=== PATIENT | male | born 1930 | race American Indian/Alaskan Native ===

== ENCOUNTER 2018-04-11 12:19 | Inpatient (IN) | payer MEDICARE, BC, OTHER ==
[2018-04-11 12:20] VITALS: BMI 29.7
--- NOTE | 2018-04-11 13:49 | ED PDOC ---
Arrival/HPI - General Chief Complaint: Abdominal Pain Time Seen by Provider: 04/11/18 13:47 Historian: Patient - History of Present Illness Narrative History of Present Illness (Text): 04/11/18 13:49 88 year old male, with past medical history of COPD, diabetes and hypertension, presents to the Emergency department complaining of diffused abdominal pain since 4-5 days. Patient states worsening discomfort over last few days associated with poor appetite, intermittent nausea, vomiting and loose bowel movement. Patient informs eating [place] food 4-5 days prior and believes it may have been the cause for these symptoms. Patient additionally informs mild sore throat and hematuria but denies any gross blood in bowel movement. Patient denies any fever/chills/sweats, chest pain/shortness of breath/palpitations, numbness/tingling, bowel changes/complaints, fall/trauma/sick contact/travel or any other complaints. Patient presents to the Emergency department for medical evaluation. PMD: Dr. Castellanos Time/Duration: < week (4-5 days) Symptom Onset: Gradual Symptom Course: Unchanged Quality: Aching Activities at Onset: Light Context: Home Past Medical History - Provider Review Nursing Documentation Reviewed: Yes - Travel History Have you recently traveled outside [place] w/in the past 3 mons?: No - Past History Past History: Non-Contributing - Infectious Disease Hx of Infectious Diseases: None - Cardiac Hx Hypertension: Yes - Pulmonary Hx Chronic Obstructive Pulmonary Disease (COPD): Yes - Endocrine/Metabolic Hx Diabetes Mellitus Type 2: Yes - Musculoskeletal/Rheumatological Hx Falls: No - Psychiatric Hx Substance Use: No - Anesthesia Hx Anesthesia: No - Suicidal Assessment Feels Threatened In Home Enviroment: No Family/Social History - Physician Review Nursing Documentation Reviewed: Yes Family/Social History: No Known Family HX Smoking Status: Former Smoker Hx Alcohol Use: No Hx Substance Use: No Hx Substance Use Treatment: No Allergies/Home Meds Allergies/Adverse Reactions: Allergies No Known Allergies Allergy (Verified 05/02/16 18:53) Home Medications: Home Meds Medication Instructions Recorded Confirmed Furosemide [Lasix] 40 mg PO DAILY 06/06/15 04/11/18 Aspirin [Adult Low Dose Aspirin EC] 81 mg PO DAILY 03/22/16 04/11/18 Losartan Potassium 50 mg PO DAILY 03/22/16 04/11/18 Ascorbic Acid [Vitamin C] 500 mg PO DAILY 04/11/18 04/11/18 Benzonatate [Tessalon Perles] 100 mg PO BID 04/11/18 04/11/18 Finasteride [Proscar] 5 mg PO DAILY 04/11/18 04/11/18 Insulin Lispro Mix 75/25 [humalog 0 units SC BID 04/11/18 04/11/18 Mix 75/25 75 U/Ml-25 U/Ml 10 Ml] Sotalol [Sorine] 80 mg PO BID 04/11/18 04/11/18 Spironolactone [Aldactone] 25 mg PO DAILY 04/11/18 04/11/18 Review of Systems - Physician Review All systems were reviewed & negative as marked: Yes - Review of Systems Constitutional: Normal. absent: Fevers Eyes: Normal ENT: Normal Respiratory: Normal. absent: SOB Cardiovascular: Normal. absent: Chest Pain, Palpitations Gastrointestinal: Abdominal Pain, Diarrhea, Nausea, Vomiting, Appetite Changes. absent: Hematochezia Genitourinary Male: Hematuria. absent: Urinary Output Changes Musculoskeletal: Normal Skin: Normal Neurological: Normal Endocrine: Normal Hemo/Lymphatic: Normal Psychiatric: Normal Physical Exam - Physical Exam Narrative Physical Exam (Text): 04/11/18 13:56 General: alert/awake, GCS = 15, oriented x 3, resting in bed, uncomfortable, cooperative, interactive; NAD Head: NC/AT; mild bi-temporal wasting EYE: PERRLA, EOMI, sclera anicteric, no nystagmus, no photophobia; visual field intact b/l Facial: WNL Oral: uvula/tongue are midline, no exudate/lesions, no drooling/stridor, no dysphonia; poor dentitions; mild dry oral mucosa NECK: intact ROM, no midline tenderness, no nuchal rigidity, no meningeal signs ; no step off Chest: CTA b/l, no w/r/r; no tachypenia, no accessory muscle use noted Chest Wall: no crepitus, no lesions, no gross deformities, no focal tenderness Cardiac: +S1, +S2, no m/r/r, no tachycardia Abdominal: +BS, soft/nd; faint lower abd tenderness noted, well nourished/ slight obese patient; no masses/rebound/guarding/rigidity; no oliva's sign, no mcburney's point tenderness Extremities: intact ROM, strength 5/5 grossly intact in all limbs, neurovasc intact b/l; + ambulatory; reflex +2/2; no pitting edema noted b/l, no dhara's sign BACK: no step off, no midline tenderness, NO crepitus, no gross deformities noted; Intact ROM SKIN: cap refill ~ 1 sec, no ulcerations, no petechiae, no rashes; no gross pallor noted NEURO: CNII-XII WNL, no facial asymmetries, no slurr speech, oriented x 3 NIH stroke scale ~ 0 Psych: normal insight, normal affect; follows command with ease Vital Signs Reviewed: Yes Vital Signs Temp Pulse Resp BP Pulse Ox 04/11/18 21:01 89 118/76 04/11/18 16:43 98 F 74 18 121/74 97 04/11/18 12:39 97.9 F 93 H 18 100/65 95 Temperature: Afebrile Blood Pressure: Normal Pulse: Regular Respiratory Rate: Normal Appearance: Positive for: Well-Appearing, Non-Toxic, Uncomfortable. No: Ill- Appearing, Unkept Pain Distress: None Mental Status: Positive for: Alert and Oriented X 3 - Systems Exam Head: Present: Atraumatic, Normocephalic Medical Decision Making ED Course and Treatment: 04/11/18 13:58 Impression: 88 year old male presents to the Emergency department for diffused abdominal pain associated with intermittent nausea, vomiting and lose bowel movement. I have considered all differential diagnoses regarding patients chief medical complaints/clinical findings which include but are not limited to: r/o infection; r/o abd pathology A/P: -- VBG -- CT of Abdomen/Pelvis -- Labs -- Chest X-ray -- Morphine -- Pepcid -- Zofran -- Urinalysis -- Reassess and disposition Progress Notes: 500pm pt is currently awaiting CT and chem results pt states that he felt much improved, compare with prior 600pm with abnl K and elevated BUN/creat, will recommend insulin+d50+calgluconate; ? johnate will re-check K pt is awaiting CT results i attempt to contact CT to inquire the CT status and to update them regarding changes in CT order but no one was able to pick up man the phone 04/11/18 18:25 fitness technician states she had perform the CT with IV contrast after she realized it was cancelled and did not see the new order [address] Vieira, mass communications instructor for Dr Castellanos, made aware of pt's medical complaints and also regarding pt's CT with IV; agrees with ED eval/mgt, would like keisha and nidia, will admit patient, will continue to monitor pt is made aware of his medical results agrees with admission Re-evaluation Time: 17:00 Reassessment Condition: Improved - Critical Care Critical Care Minutes: 30 minutes Critical Care Time: Excluding Proc Time - Lab Interpretations Lab Results: 04/11/18 15:00 04/11/18 18:30 Lab Results 04/11/18 18:30: Sodium 139, Chloride 115 H, Potassium 5.8 H* D, Carbon Dioxide 15 L, Anion Gap 15, BUN 55 H, Creatinine 1.9 H, Est GFR ( Amer) 41, Est GFR (Non-Af Amer) 34, Random Glucose 131 H, Calcium 9.0, Magnesium 2.0 04/11/18 18:30: pO2 159 H, VBG pH 7.24 L, VBG pCO2 34.0 L, VBG HCO3 14.6 L, VBG O2 Sat (Calc) 97.8 H, VBG Base Excess -11.8 L 04/11/18 15:42: Urine Color Yellow, Urine Appearance Clear, Urine pH 6.0, Ur Specific Randle 1.020, Urine Protein Trace H, Urine Glucose (UA) Negative, Urine Ketones Negative, Urine Blood Large H, Urine Nitrate Negative, Urine Bilirubin Negative, Urine Urobilinogen 0.2, Ur Leukocyte Esterase Moderate H, Urine RBC 25 - 30, Urine WBC 1 - 3, Ur Epithelial Cells 0 - 2, Urine Bacteria Trace 04/11/18 15:00: pO2 85 H, VBG pH 7.25 L, VBG pCO2 36.0 L, VBG HCO3 15.8 L, VBG Total CO2 16.9 L, VBG O2 Sat (Calc) 96.4 H, VBG Base Excess -10.6 L, VBG Potassium 7.5 H*, Sodium 131.0 L, Chloride 112.0 H, Glucose 187 H, Lactate 1.3, FiO2 21.0, Venous Blood Potassium 7.5 H* 04/11/18 15:00: Sodium 138, Chloride 112 H, Potassium 7.5 H* D, Carbon Dioxide 17 L, Anion Gap 17, BUN 60 H, Creatinine 2.3 H, Est GFR ( Amer) 33, Est GFR (Non-Af Amer) 27, Random Glucose 133 H, Calcium 9.4, Total Bilirubin 0.6, AST 42, ALT 54, Alkaline Phosphatase 36 L, Troponin I 0.02, NT-Pro-B Natriuret Pep 368, Total Protein 7.3, Albumin 3.5, Globulin 3.7, Albumin/Globulin Ratio 0.9 L, Lipase 102 04/11/18 15:00: PT 13.0 H, INR 1.14 H, APTT 26.6 04/11/18 15:00: WBC 12.4 H D, RBC 3.70, Hgb 12.2 L, Hct 36.4 L, MCV 98.4, MCH 33.0, MCHC 33.5, RDW 13.4, Plt Count 214, MPV 10.0, Gran % 72.6 H, Lymph % (Auto ) 21.9 L, [place] % (Auto) 5.2, Eos % (Auto) 0.2 L, Baso % (Auto) 0.1, Gran # 8.97 H, Lymph # (Auto) 2.7, [place] # (Auto) 0.6, Eos # (Auto) 0.0, Baso # (Auto) 0.01 I have reviewed the lab results: Yes Interpretation: Abnormal lab values (elevated BUN/creat, elevated K; + UTI) - RAD Interpretation Narrative RAD Interpretations (Text): 04/11/18 15:12 Chest X-ray reviewed by radiologist, shows: FINDINGS: LUNGS: No active pulmonary disease. PLEURA: No significant pleural effusion identified, no pneumothorax apparent. CARDIOVASCULAR: Normal. OSSEOUS STRUCTURES: No significant abnormalities. VISUALIZED UPPER ABDOMEN: Normal. OTHER FINDINGS: Single lead pacemaker IMPRESSION: No active disease. 04/11/18 20:30 CT abdomen/pelvis reviewed, shows: Limitations: Motion artifact - mild. Lung bases: Mild peripheral atelectasis/scarring. Mild bronchiectasis within lower lobes. 0.2 cm LEFT lower lobe nodule, stable. 0.3 cm RIGHT middle lobe nodule. Mediastinum: Small hiatal hernia. Borderline enlarged short axis subcarinal lymph node. ABDOMEN: Liver: Fatty infiltration. Gallbladder and bile ducts: No calcified stones. No ductal dilation. Pancreas: No ductal dilation. No mass. Spleen: No splenomegaly. Adrenals: No mass. Kidneys and ureters: Mild stranding about kidneys, nonspecific. Few probable renal cysts. Few too small to characterize lesions within kidneys. 2.7 x 2.7 x 2.7 cm lesion within LEFT kidney, indeterminate by CT criteria. 1.7 x 1.7 x 1.7 cm lesion within LEFT kidney, indeterminate by CT criteria. No hydronephrosis. Stomach and bowel: Scattered diverticula within colon. No associated inflammatory stranding. No definite mural thickening. No obstruction. PELVIS: Appendix: No findings to suggest acute appendicitis. Bladder: Distended bladder. Reproductive: Unremarkable as visualized. ABDOMEN and PELVIS: Intraperitoneal space: No significant fluid collection. No free air. Bones/joints: Mild degenerative changes of spine. No acute fracture. Soft tissues: Mild gynecomastia. Small to moderate RIGHT inguinal hernia containing fat. Moderate LEFT inguinal hernia containing fat and sidewall of large bowel. Mild focal stranding within the anterior abdominal wall, stable. Small umbilical hernia containing fat. Vasculature: Moderate atherosclerotic disease. No aneurysm. Lymph nodes: No pathologically enlarged lymph nodes. Tubes, lines and devices: Pacemaker leads. IMPRESSION: 1. Kidney lesions, incompletely characterized but similar in size to previous examination. Recommend nonemergent ultrasound or MRI. Given history of hematuria, recommend urological consultation. 2. Pulmonary nodule. For low-risk patients, no follow-up is necessary. For high- risk patients (smoking history or other known risk factors) an optional CT at 12 months could be performed. 3. Incidental/non-acute findings are described above. Radiology Orders: 04/11/18 13:59 CHEST PORTABLE [RAD] Stat 04/11/18 18:10 ABD & PELVIS IV CONTRAST ONLY [CT] Stat Public Affairs Specialist: Radiologist - EKG Interpretation EKG Interpretation (Text): 04/11/18 20:03 NSR at 75 bpm, LAD, no ectopy, diffuse low voltage, inverted T in leads I, L, non-specific st changes, ABNL EKG; unchanged compare with old ekg 04/2016 Interpreted by ED Physician: Yes Type: 12 lead EKG Comparison: Similar to previous EKG - Medication Orders Current Medication Orders: Acetaminophen (Tylenol 325mg Tab) 650 mg PO Q6H PRN PRN Reason: Pain Last Admin: 04/12/18 23:13 Dose: 650 mg MAR Pain/Vitals Document 04/12/18 23:13 FDE (Rec: 04/12/18 23:13 FDE [id number]) Pain Reassessment Is This A Pain ReAssessment? Yes Sleep Is patient sleeping during reassessment? No Presence of Pain Presence of Pain Yes Re-Assess: MAR Pain/Vitals Document 04/13/18 00:13 FDE (Rec: 04/13/18 00:49 FDE [id number]) Pain Reassessment Is This A Pain ReAssessment? Yes Sleep Is patient sleeping during reassessment? Yes Aspirin (Ecotrin) 81 mg PO DAILY [facility] Last Admin: 04/12/18 10:27 Dose: 81 mg Benzocaine/Menthol (Cepacol Sore Throat) 1 [place] Q2H PRN PRN Reason: Sore Throat Last Admin: 04/12/18 18:30 Dose: 1 raymond Finasteride (Proscar) 5 mg PO DAILY [facility] Last Admin: 04/12/18 10:28 Dose: 5 mg Sodium Chloride (Sodium Chloride 0.9%) 1,000 mls @ 100 mls/hr IV .Q10H [facility] Last Admin: 04/13/18 03:31 Dose: 100 mls/hr eMAR Start Stop Document 04/13/18 03:31 FDE (Rec: 04/13/18 03:31 FDE [id number]) Intravenous Solution Start Date 04/13/18 Start Time 03:31 Ceftriaxone Sodium (Rocephin 1 Gram Ivpb) 1 gm in 100 mls @ 100 mls/hr IVPB DAILY MAEGAN PRN Reason: Protocol Last Admin: 04/12/18 10:28 Dose: 100 mls/hr eMAR Start Stop Document 04/12/18 10:28 RDS (Rec: 04/12/18 10:28 RDS [id number]) Intravenous Solution Start Date 04/12/18 Start Time 10:28 End Date 04/12/18 End time 11:28 Total Infusion Time 60 Insulin Human Lispro (Humalog Med) 0 units SC ACHS MAEGAN PRN Reason: Protocol Last Admin: 04/12/18 22:43 Dose: Not Given Non-Admin Reason: Blood Sugar Parameter MAR Blood Glucose Document 04/12/18 22:43 FDE (Rec: 04/12/18 22:44 FDE [id number]) Blood Glucose Finger Stick Blood Glucose (70-120) 194 Ondansetron HCl (Zofran Inj) 4 mg IVP Q6H PRN PRN Reason: Nausea/Vomiting Sotalol HCl (Betapace) 80 mg PO BID [facility] Last Admin: 04/12/18 17:41 Dose: 80 mg MAR Pulse and Blood Pressure Document 04/12/18 17:41 RDS (Rec: 04/12/18 17:41 RDS [id number]) Pulse Pulse Rate (60-90) 80 Blood Pressure Blood Pressure (100/60-150/90) 121/75 Discontinued Medications Albuterol/Ipratropium (Duoneb 3 Mg/0.5 Mg (3 Ml) Ud) 3 ml IH Q15M [facility] Stop: 04/11/18 19:16 Last Admin: 04/11/18 20:13 Dose: 3 ml Calcium Gluconate (Calcium Gluconate Iv) 1,000 mg IVP ONCE ONE Stop: 04/11/18 17:44 Last Admin: 04/11/18 17:58 Dose: 1,000 mg IVP Administration Document 04/11/18 17:58 LA (Rec: 04/11/18 17:58 LA [id number]) Charges for Administration # of IVP Administrations 1 Dextrose (Dextrose 50% Inj) 50 ml IVP STAT STA Stop: 04/11/18 17:43 Last Admin: 04/11/18 17:57 Dose: 50 ml IVP Administration Document 04/11/18 17:57 LA (Rec: 04/11/18 17:57 PATRICA [id number]) Charges for Administration # of IVP Administrations 1 Fludrocortisone Acetate (Florinef) 0.1 mg PO ONCE ONE Stop: 04/12/18 14:29 Last Admin: 04/12/18 15:35 Dose: 0.1 mg Furosemide (Lasix) 40 mg IVP ONCE ONE Stop: 04/12/18 14:29 Last Admin: 04/12/18 15:35 Dose: 40 mg MAR Blood Pressure Document 04/12/18 15:35 RDS (Rec: 04/12/18 15:35 RDS [id number]) Blood Pressure Blood Pressure (100/60-150/90) 106/74 IVP Administration Document 04/12/18 15:35 RDS (Rec: 04/12/18 15:35 RDS [id number]) Charges for Administration # of IVP Administrations 1 Famotidine (Pepcid 20mg/50ml Premix) 20 mg in 50 mls @ 100 mls/hr IVPB STAT STA Stop: 04/11/18 14:28 Last Admin: 04/11/18 15:31 Dose: 100 mls/hr eMAR Start Stop Document 04/11/18 15:31 LA (Rec: 04/11/18 15:31 LA [id number]) Intravenous Solution Start Date 04/11/18 Start Time 15:31 End Date 04/11/18 End time 16:01 Total Infusion Time 30 Ceftriaxone Sodium (Rocephin 1 Gram Ivpb) 1 gm in 100 mls @ 200 mls/hr IVPB STAT STA PRN Reason: Protocol Stop: 04/11/18 17:15 Last Admin: 04/11/18 17:24 Dose: 200 mls/hr eMAR Start Stop Document 04/11/18 17:24 LA (Rec: 04/11/18 17:26 LA [id number]) Intravenous Solution Start Date 04/11/18 Start Time 17:25 End Date 04/11/18 End time 17:55 Total Infusion Time 30 Sodium Chloride (Sodium Chloride 0.9%) 500 mls @ 999 mls/hr IV .Q31M STA Stop: 04/11/18 19:06 Last Admin: 04/11/18 19:01 Dose: 999 mls/hr eMAR Start Stop Document 04/11/18 19:01 LA (Rec: 04/11/18 19:02 LA [id number]) Intravenous Solution Start Date 04/11/18 Start Time 19:01 End Date 04/11/18 End time 19:32 Total Infusion Time 31 Sodium Bicarbonate 150 meq/ (Dextrose) 1,150 mls @ 125 mls/hr IV .Q9H12M MAEGAN Stop: 04/12/18 23:41 Last Admin: 04/12/18 18:00 Dose: 125 mls/hr eMAR Start Stop Document 04/12/18 18:00 RDS (Rec: 04/12/18 18:00 RDS [id number]) Intravenous Solution Start Date 04/12/18 Start Time 18:00 Calcium Gluconate 1,000 mg/ (Dextrose) 110 mls @ 110 mls/hr IVPB ONCE ONE Stop: 04/12/18 16:13 Last Admin: 04/12/18 16:15 Dose: 110 mls/hr eMAR Start Stop Document 04/12/18 16:15 RDS (Rec: 04/12/18 16:15 RDS [id number]) Intravenous Solution Start Date 04/12/18 Start Time 16:15 End Date 04/12/18 End time 17:15 Total Infusion Time 60 Insulin Human Regular (Humulin R) 10 units IVP ONCE ONE Stop: 04/11/18 17:42 Last Admin: 04/11/18 17:57 Dose: 10 units MAR Blood Glucose Document 04/11/18 17:57 LA (Rec: 04/11/18 17:57 LA [id number]) Blood Glucose Finger Stick Blood Glucose (70-120) 133 IVP Administration Document 04/11/18 17:57 LA (Rec: 04/11/18 17:57 LA [id number]) Charges for Administration # of IVP Administrations 1 Morphine Sulfate (Morphine) 4 mg IVP STAT STA Stop: 04/11/18 14:00 Last Admin: 04/11/18 15:32 Dose: 4 mg MAR Pain Assessment Document 04/11/18 15:32 LA (Rec: 04/11/18 15:33 LA [id number]) Pain Reassessment Is this a pain reassessment? No Sleep Is patient sleeping during reassessment? No Presence of Pain Presence of Pain Yes Pain Scale Used Pain Scale Used Numeric Location Pain Location Body Site Abdomen Description Description Cramping Intensity of Pain at present 5 IVP Administration Document 04/11/18 15:32 LA (Rec: 04/11/18 15:33 LA [id number]) Charges for Administration # of IVP Administrations 1 Re-Assess: NI Pain Assessment Document 04/11/18 16:32 LA (Rec: 04/11/18 17:26 LA [id number]) Pain Reassessment Is this a pain reassessment? Yes Sleep Is patient sleeping during reassessment? Yes Ondansetron HCl (Zofran Inj) 4 mg IVP ONCE ONE Stop: 04/11/18 14:00 Last Admin: 04/11/18 15:33 Dose: 4 mg IVP Administration Document 04/11/18 15:33 LA (Rec: 04/11/18 15:33 LA [id number]) Charges for Administration # of IVP Administrations 1 Sodium Polystyrene Sulfonate (Kayexalate Susp) 30 gm PO STAT STA Stop: 04/11/18 18:43 Last Admin: 04/11/18 19:00 Dose: 30 gm Sodium Polystyrene Sulfonate (Kayexalate Susp) 30 gm PO STAT STA Stop: 04/12/18 13:32 Last Admin: 04/12/18 14:06 Dose: 30 gm - Scribe Statement The provider has reviewed the documentation as recorded by the Scribe Noman Pitts. All medical record entries made by the Christoferibe were at my direction and personally dictated by me. I have reviewed the chart and agree that the record accurately reflects my personal performance of the history, physical exam, medical decision making, and the department course for this patient. I have also personally directed, reviewed, and agree with the discharge instructions and disposition. Disposition/Present on Arrival - Present on Arrival Any Indicators Present on Arrival: No History of DVT/PE: No History of Uncontrolled Diabetes: Yes Urinary Catheter: No History of Decub. Ulcer: No History Surgical Site Infection Following: None - Disposition Have Diagnosis and Disposition been Completed?: Yes Diagnosis: Hyperkalemia, UTI (urinary tract infection), At risk for sepsis, Urinary retention, Acute renal insufficiency Disposition: HOSPITALIZED Disposition Time: 19:00 Patient Plan: Admission, Telemetry Patient Problems: Current Active Problems Problem Status Onset Acute renal insufficiency Acute At risk for sepsis Acute Hyperkalemia Acute UTI (urinary tract infection) Acute Urinary retention Acute Condition: FAIR
[2018-04-11] MEDS ORDERED: Morphine 2 mg/ml ISec IVP STA (13:59)
[2018-04-11] MEDS ORDERED: Famotidine 20mg/50ml 20 MG/50 ML BAG IVPB STA (13:59)
--- NOTE | 2018-04-11 15:05 | RAD ---
HISTORY: epigastric pain COMPARISON: 04/29/2016 FINDINGS: LUNGS: No active pulmonary disease. PLEURA: No significant pleural effusion identified, no pneumothorax apparent. CARDIOVASCULAR: Normal. OSSEOUS STRUCTURES: No significant abnormalities. VISUALIZED UPPER ABDOMEN: Normal. OTHER FINDINGS: Single lead pacemaker IMPRESSION: No active disease.
[2018-04-11 15:23] LABS: VENOUS BLOOD GAS BASE EXCESS -10.6 mmol/L (0.0-2.0); VENOUS BLOOD GAS PO2 85 mm/Hg (30-55); VENOUS BLOOD PH 7.25 (7.32-7.43)
[2018-04-11 15:30] LABS: BASO # 0.01 K/mm3 (0.0-2.0); BASO % 0.1 % (0.0-3.0); EOS % 0.2 % (1.5-5.0); GRAN # 8.97 (1.4-6.5); GRAN % 72.6 % (50.0-68.0); HEMOGLOBIN 12.2 g/dL (14.0-18.0); LYMPH # 2.7 (1.2-3.4); LYMPH % 21.9 % (22.0-35.0); MEAN CELL VOLUME 98.4 fl (80.0-105.0); MEAN CORPUSCULAR HGB CONC 33.5 g/dl (31.0-37.0); MONO # 0.6 (0.1-0.6); MONO % 5.2 % (1.0-6.0); RBC 3.7 10^6/uL (3.5-6.1); RED CELL DISTRIBUTION WIDTH 13.4 % (11.5-14.5); WHITE BLOOD COUNT 12.4 10^3/ul (4.5-11.0)
[2018-04-11] MEDS: Sodium Chloride 0.9% 1,000 ML IV SCH (15:31)
[2018-04-11 15:36] LABS: INR 1.14 (0.93-1.08); PARTIAL THROMBOPLASTIN TIME 26.6 Seconds (25.1-36.5)
[2018-04-11 15:41] LABS: TROPONIN I 0.02 ng/mL
[2018-04-11 16:12] LABS: URINE BILIRUBIN NEGATIVE (NEGATIVE); URINE BLOOD LARGE (NEGATIVE); URINE GLUCOSE (UA) NEGATIVE (NEGATIVE); URINE LEUKOCYTE ESTERASE MODERATE Leu/uL (NEGATIVE); URINE PROTEIN TRACE mg/dL (<30 mg/dL); URINE UROBILINOGEN 0.2 E.U./dL (<1 E.U./dL)
[2018-04-11 16:14] LABS: URINE APPEARANCE CLEAR (CLEAR); URINE COLOR YELLOW (YELLOW)
[2018-04-11 16:26] LABS: URINE BACTERIA TRACE (NEG); URINE EPITHELIAL CELLS 0 - 2 /hpf (0-5); URINE RBC 25 - 30 /hpf (0-2)
[2018-04-11] MEDS ORDERED: cefTRIAXone 1 gm 1 GM/100 ML BAG IVPB STA (16:46)
[2018-04-11] MEDS ORDERED: Insulin Regular 1 UNITS/0.01 ML ML IVP ONE (17:41)
[2018-04-11 17:42] LABS: ALB/GLOB RATIO 0.9 (1.1-1.8); ALBUMIN 3.5 g/dL (3.0-4.8); CALCIUM 9.4 mg/dL (8.4-10.5)
[2018-04-11] MEDS ORDERED: Dextrose 50% SYRINGE Inj (50 ml) IVP STA (17:42)
[2018-04-11] MEDS ORDERED: Iodixanol 320 MG/ML 100 ML BOTTLE IV ONE (17:55)
[2018-04-11] MEDS ORDERED: Sodium Chloride 0.9% 500 ML IV STA (18:36)
[2018-04-11] MEDS ORDERED: Sod Polystyrene Sulf 15 gm/60 ml Susp PO STA (18:42)
[2018-04-11] MEDS: Albuterol-Ipratrop 3 mg / 0.5 (3 ml) UD IH SCH ×3 (19:00→20:13)
[2018-04-11 19:09] LABS: VENOUS BLOOD GAS BASE EXCESS -11.8 mmol/L (0.0-2.0); VENOUS BLOOD GAS PO2 159 mm/Hg (30-55); VENOUS BLOOD PH 7.24 (7.32-7.43)
--- NOTE | 2018-04-11 20:30 | CT ---
EXAM: CT Abdomen and Pelvis With Intravenous Contrast CLINICAL HISTORY: 88 years old, male; Pain; Abdominal pain; Additional info: Hematuria, abd pain, elevated bun/creat TECHNIQUE: Axial computed tomography images of the abdomen and pelvis with intravenous contrast. All CT scans at this facility use one or more dose reduction techniques, viz.: automated exposure control; ma/kV adjustment per patient size (including targeted exams where dose is matched to indication; i.e. head); or iterative reconstruction technique. Coronal and sagittal reformatted images were created and reviewed. CONTRAST: 95 mL of visipaque administered intravenously. COMPARISON: CT - ABD PELVIS W/O PO OR IV CONT 2016-04-29 11:34 FINDINGS: Limitations: Motion artifact - mild. Lung bases: Mild peripheral atelectasis/scarring. Mild bronchiectasis within lower lobes. 0.2 cm LEFT lower lobe nodule, stable. 0.3 cm RIGHT middle lobe nodule. Mediastinum: Small hiatal hernia. Borderline enlarged short axis subcarinal lymph node. ABDOMEN: Liver: Fatty infiltration. Gallbladder and bile ducts: No calcified stones. No ductal dilation. Pancreas: No ductal dilation. No mass. Spleen: No splenomegaly. Adrenals: No mass. Kidneys and ureters: Mild stranding about kidneys, nonspecific. Few probable renal cysts. Few too small to characterize lesions within kidneys. 2.7 x 2.7 x 2.7 cm lesion within LEFT kidney, indeterminate by CT criteria. 1.7 x 1.7 x 1.7 cm lesion within LEFT kidney, indeterminate by CT criteria. No hydronephrosis. Stomach and bowel: Scattered diverticula within colon. No associated inflammatory stranding. No definite mural thickening. No obstruction. PELVIS: Appendix: No findings to suggest acute appendicitis. Bladder: Distended bladder. Reproductive: Unremarkable as visualized. ABDOMEN and PELVIS: Intraperitoneal space: No significant fluid collection. No free air. Bones/joints: Mild degenerative changes of spine. No acute fracture. Soft tissues: Mild gynecomastia. Small to moderate RIGHT inguinal hernia containing fat. Moderate LEFT inguinal hernia containing fat and sidewall of large bowel. Mild focal stranding within the anterior abdominal wall, stable. Small umbilical hernia containing fat. Vasculature: Moderate atherosclerotic disease. No aneurysm. Lymph nodes: No pathologically enlarged lymph nodes. Tubes, lines and devices: Pacemaker leads. IMPRESSION: 1. Kidney lesions, incompletely characterized but similar in size to previous examination. Recommend nonemergent ultrasound or MRI. Given history of hematuria, recommend urological consultation. 2. Pulmonary nodule. For low-risk patients, no follow-up is necessary. For high-risk patients (smoking history or other known risk factors) an optional CT at 12 months could be performed. 3. Incidental/non-acute findings are described above.
[2018-04-12] MEDS: Sodium Chloride 0.9% 1,000 ML IV SCH ×3 (10:10→22:44)
[2018-04-12] MEDS: cefTRIAXone 1 gm 1 GM/100 ML BAG IVPB SCH (10:28)
--- NOTE | 2018-04-12 10:40 | CARD ---
APPROVED REPORT EKG Measurement Heart [id number] <Conclusion> Normal sinus rhythm Left axis deviationPRWP NSSTW changes No change except the QTc is normal now
[2018-04-12 11:43] LABS: ALBUMIN 3.3 g/dL (3.0-4.8)
[2018-04-12] MEDS: Insulin Lispro (humaLOG) MEDIUM Coverage SC SCH ×3 (12:12→22:43)
[2018-04-12] MEDS ORDERED: Sod Polystyrene Sulf 15 gm/60 ml Susp PO STA (13:31)
--- NOTE | 2018-04-12 14:09 | PN ---
DATE: 04/12/2018 SUBJECTIVE: The patient is 88 years old, seen and examined, lying in bed. Seems to be comfortable. He states his appetite is coming back. No more abdominal pain. PHYSICAL EXAMINATION: VITAL SIGNS: He is afebrile, pulse 77, respirations 20, blood pressure 103/59. LUNGS: Bilateral fair airflow. No rhonchi or crackle. HEART: S1 and S2 audible. ABDOMEN: Soft, obese, nontender. No rebound. No guarding. NEUROLOGICAL: He is awake, alert, oriented, able to communicate. EXTREMITIES: Bilateral legs, no edema. GENITOURINARY: He is draining clear urine. LABORATORY EXAM: His chemistry shows sodium 138, potassium 6.4, chloride 112, CO2 of 19, BUN 45, creatinine 1.7, blood sugar of 198. Urinalysis shows moderate leukocytes. CT scan of the abdomen and pelvis was done shows kidney lesion. ASSESSMENT: 1. Pulmonary nodule. 2. Acute renal failure. 3. Hyperkalemia. 4. Morbid obesity. 5. Insulin-dependent diabetes. 6. History of benign prostatic hypertrophy. PLAN: We will continue the patient on current IV fluid. Give another dose of Kayexalate and monitor his potassium around 06:00 o'clock. Also, request for Urology consult to address renal lesion. We will follow up his electrolyte in the a.m. Continue him on IV antibiotics. Monitor his CBC and CMP in the a.m. Stephon Vieira MD
[2018-04-12] MEDS ORDERED: Sodium Bicarbonate 8.4% 150 MEQ in Dextrose 5% In Water 1,000 ML IV SCH (14:30)
[2018-04-12] MEDS ORDERED: Benzocaine/Menthol (Cepacol) Lozenge MT PRN (18:13)
[2018-04-12 21:27] LABS: CALCIUM 9.2 mg/dL (8.4-10.5)
[2018-04-13] MEDS: Sodium Chloride 0.9% 1,000 ML IV SCH (03:31)
[2018-04-13 05:45] VITALS: O2SAT 96
[2018-04-13 08:07] LABS: BASO # 0.02 K/mm3 (0.0-2.0); BASO % 0.3 % (0.0-3.0); EOS # 0.3 (0.0-0.7); EOS % 3.4 % (1.5-5.0); GRAN # 3.35 (1.4-6.5); GRAN % 45.4 % (50.0-68.0); LYMPH # 2.9 (1.2-3.4); LYMPH % 39.8 % (22.0-35.0); MEAN CELL VOLUME 97.3 fl (80.0-105.0); MEAN CORPUSCULAR HEMOGLOBIN 32.8 pg (25.0-35.0); MEAN CORPUSCULAR HGB CONC 33.7 g/dl (31.0-37.0); MEAN PLATELET VOLUME 9.2 fl (7.0-11.0); MONO # 0.8 (0.1-0.6); MONO % 11.1 % (1.0-6.0); RBC 3.35 10^6/uL (3.5-6.1); RED CELL DISTRIBUTION WIDTH 13.1 % (11.5-14.5); WHITE BLOOD COUNT 7.4 10^3/ul (4.5-11.0)
--- NOTE | 2018-04-13 08:45 | CP.PCM.CON ---
History of Present Illness - History of Present Illness History of Present Illness: 88 year old male, with past medical history of COPD, diabetes and hypertension, presented to the Emergency department complaining of diffused abdominal pain since previous 4-5 days along with associated nausea and vomiting; nephrology being consulted for hyperkalemia; Patient reportedly with worsening discomfort over previous few days prior to admission along with poor appetite, intermittent nausea, vomiting and loose bowel movement. Patient had also been on diuretics for lower ext edema which he says had significantly improved; he otherwise reports taking advil occasionally for knee/leg pains but not recently; Review of Systems - EENT Nose/Mouth/Throat: Dysphagia - Cardiovascular Cardiovascular: absent: Chest Pain, Palpitations - Respiratory Respiratory: absent: Dyspnea - Gastrointestinal Gastrointestinal: As Per HPI - Genitourinary Additional comments: persistent microscopic hematuria; - Musculoskeletal Musculoskeletal: Arthralgias - Neurological Neurological: absent: Numbness - Psychiatric Psychiatric: absent: Anxiety, Depression Past Patient History - Infectious Disease Hx of Infectious Diseases: None - Past Medical History & Family History Pertinent Family History: heart disease - Past Social History Smoking Status: Former Smoker - CARDIAC Hx Hypertension: Yes - PULMONARY Hx Chronic Obstructive Pulmonary Disease (COPD): Yes - ENDOCRINE/METABOLIC Hx Diabetes Mellitus Type 2: Yes - MUSCULOSKELETAL/RHEUMATOLOGICAL Hx Falls: No - PSYCHIATRIC Hx Substance Use: No - SURGICAL HISTORY Hx Surgeries: No - ANESTHESIA Hx Anesthesia: No Meds Home Medications: Home Medication List Medication Instructions Recorded Confirmed Type Acetaminophen [Tylenol 325mg tab] 650 mg PO Q6H PRN tab 04/13/18 Rx Allergies/Adverse Reactions: Allergies Allergy/AdvReac Type Severity Reaction Status Date / Time No Known Allergies Allergy Verified 05/02/16 18:53 - Medications Medications: Current Medications Acetaminophen (Tylenol 325mg Tab) 650 mg PO Q6H PRN PRN Reason: Pain Last Admin: 04/12/18 23:13 Dose: 650 mg Aspirin (Ecotrin) 81 mg PO DAILY [facility] Last Admin: 04/12/18 10:27 Dose: 81 mg Benzocaine/Menthol (Cepacol Sore Throat) 1 raymond MT Q2H PRN PRN Reason: Sore Throat Last Admin: 04/12/18 18:30 Dose: 1 raymond Finasteride (Proscar) 5 mg PO DAILY [facility] Last Admin: 04/12/18 10:28 Dose: 5 mg Sodium Chloride (Sodium Chloride 0.9%) 1,000 mls @ 100 mls/hr IV .Q10H [facility] Last Admin: 04/13/18 03:31 Dose: 100 mls/hr Ceftriaxone Sodium (Rocephin 1 Gram Ivpb) 1 gm in 100 mls @ 100 mls/hr IVPB DAILY [facility] PRN Reason: Protocol Last Admin: 04/12/18 10:28 Dose: 100 mls/hr Insulin Human Lispro (Humalog Med) 0 units SC ACHS [facility] PRN Reason: Protocol Last Admin: 04/12/18 22:43 Dose: Not Given Ondansetron HCl (Zofran Inj) 4 mg IVP Q6H PRN PRN Reason: Nausea/Vomiting Sotalol HCl (Betapace) 80 mg PO BID [facility] Last Admin: 04/12/18 17:41 Dose: 80 mg Physical Exam - Constitutional Appears: Non-toxic, No Acute Distress - Eye Exam Eye Exam: absent: Scleral icterus - ENT Exam ENT Exam: Mucous Membranes Moist - Respiratory Exam Respiratory Exam: Clear to Auscultation Bilateral. absent: Respiratory Distress - Cardiovascular Exam Cardiovascular Exam: RRR, +S1, +S2 - GI/Abdominal Exam GI & Abdominal Exam: Soft. absent: Distended - Exam Exam: absent: Bladder Distension - Extremities Exam Additional comments: minimal lower leg edema, shriveling of skin of lower legs; - Neurological Exam Neurological exam: Alert Additional comments: no resting tremor; - Psychiatric Exam Psychiatric exam: Normal Affect, Normal Mood - Skin Skin Exam: Normal Color, Warm Results - Vital Signs Recent Vital Signs: Last Vital Signs Temp 98.1 F 04/13/18 05:45 Pulse 71 04/13/18 05:45 Resp 18 04/13/18 05:45 BP 105/66 04/13/18 05:45 Pulse Ox 96 04/13/18 05:45 - Labs Result Diagrams: 04/13/18 07:20 04/12/18 21:05 Labs: Laboratory Results - last 24 hr 04/12/18 04/12/18 04/12/18 11:15 11:40 16:31 WBC RBC Hgb Hct MCV MCH MCHC RDW Plt Count MPV Gran % Lymph % (Auto) Hardeman % (Auto) Eos % (Auto) Baso % (Auto) Gran # Lymph # (Auto) Hardeman # (Auto) Eos # (Auto) Baso # (Auto) Sodium 138 Potassium 6.4 H* Chloride 112 H Carbon Dioxide 19 L Anion Gap 14 BUN 45 H Creatinine 1.7 H Est GFR ( Amer) 46 Est GFR (Non-Af Amer) 38 POC Glucose (mg/dL) 198 H 165 H Random Glucose 198 H Calcium 9.0 Total Bilirubin 0.4 AST 38 ALT 53 Alkaline Phosphatase 33 L Total Protein 6.4 Albumin 3.3 Globulin 3.1 Albumin/Globulin Ratio 1.0 L 04/12/18 04/12/18 04/13/18 21:05 21:17 07:16 WBC RBC Hgb Hct MCV MCH MCHC RDW Plt Count MPV Gran % Lymph % (Auto) Hardeman % (Auto) Eos % (Auto) Baso % (Auto) Gran # Lymph # (Auto) Hardeman # (Auto) Eos # (Auto) Baso # (Auto) Sodium 139 Potassium 5.2 H Chloride 108 H Carbon Dioxide 21 Anion Gap 15 BUN 40 H Creatinine 1.7 H Est GFR ( Amer) 46 Est GFR (Non-Af Amer) 38 POC Glucose (mg/dL) 194 H 118 H Random Glucose 183 H Calcium 9.2 Total Bilirubin AST ALT Alkaline Phosphatase Total Protein Albumin Globulin Albumin/Globulin Ratio 04/13/18 07:20 WBC 7.4 D RBC 3.35 L Hgb 11.0 L Hct 32.6 L MCV 97.3 MCH 32.8 MCHC 33.7 RDW 13.1 Plt Count 171 MPV 9.2 Gran % 45.4 L Lymph % (Auto) 39.8 H Hardeman % (Auto) 11.1 H Eos % (Auto) 3.4 Baso % (Auto) 0.3 Gran # 3.35 Lymph # (Auto) 2.9 Hardeman # (Auto) 0.8 H Eos # (Auto) 0.3 Baso # (Auto) 0.02 Sodium Potassium Chloride Carbon Dioxide Anion Gap BUN Creatinine Est GFR ( Amer) Est GFR (Non-Af Amer) POC Glucose (mg/dL) Random Glucose Calcium Total Bilirubin AST ALT Alkaline Phosphatase Total Protein Albumin Globulin Albumin/Globulin Ratio - Imaging and Cardiology CT scan - abdomen Status: Image reviewed by me Additional comment: bilateral renal cysts Assessment & Plan (1) Acute kidney injury Assessment and Plan: Secondary to volume depletion in the setting of GI losses and being on diuretics with loss of renal autoregulation due to being on EUN blockade ( losartan); non-oliguric renal failure, improving with IVF; -continuing with IVF (see below); -avoid further nephrotoxic agents (IV dye, NSAIDS, phosphate enema, etc); Status: Acute (2) Hyperkalemia Assessment and Plan: Secondary to volume depletion and being on EUN blockade with both losartan and aldactone; had improved with medical management on presentation but potassium level rebounding again today; -agree with repeat dose of kayexalate -repeat dose of calcium gluconate for cardiac protectivity -forced diuresis with IVF and lasix 40 mg IVP x 1; -florinef 0.1 mg x 1 to counter effect of aldactone/losartan on distal tubular K excretion; -changing IVF to D5W w/ 150 meq sodium bicarb at 125 cc/hr x 1 bag Status: Acute (3) Renal cyst Assessment and Plan: Reportedly unchanged on imaging; patient unclear of previous management; persistent microscopic hematuria; -obtaining urine cytology; -agree with urology evsona; Status: Acute
--- NOTE | 2018-04-13 08:50 | HP ---
DATE OF EXAM: 04/11/2018 HISTORY OF PRESENT ILLNESS: The patient is 88-year-old patient of Dr. Castellanos states for 5 days ago, he had German food, he thought probably it was bad food, he started to have nausea, vomiting and diarrhea. Had loose bowel movements. He had general malaise with body aches and pain. He has also a sore throat, later on he developed hematuria. No history of hemoptysis, no hematemesis. No chest pain, no shortness of breath. PAST MEDICAL HISTORY: Significant for: 1. COPD. 2. Hypertension. 3. [id number] diabetes. PAST SURGICAL HISTORY: Significant for inguinal hernia repair. SOCIAL HISTORY: He lives by himself. Denies smoking, drinking or alcohol use. ALLERGIES: HE IS NOT ALLERGIC TO ANY MEDICATIONS. MEDICATION AT HOME: He is on: 1. Proscar 5 mg daily. 2. Vitamin C 500 daily. 3. Tessalon Perles as needed. 4. Sotalol 80 mg twice a day. 5. Lasix 40 mg daily. 6. Aldactone 25 daily. 7. Losartan 50 mg daily. 8. daily. REVIEW OF SYSTEMS: Significant for generalized weakness and some abdominal discomfort. PHYSICAL EXAMINATION: GENERAL: He is awake, alert, oriented, communicative. VITAL SIGNS: He is afebrile, pulse 74, respirations 18, blood pressure 121/75. LUNGS: Bilateral fair airflow. No rhonchi or crackles. HEART: S1 and S2 audible. ABDOMEN: Soft, nontender. No rebound. No guarding. NEUROLOGICAL: He is awake, alert and oriented, able to communicate. LABORATORY EXAM: WBC 12.4, hemoglobin 12, hematocrit 36, and platelets of 214. PT 13 and INR 1.10. Chemistry: Sodium 138, potassium 7.5, chloride 112, CO2 of 17, BUN 60, creatinine 2.3. Blood sugar of 133. LFTs are within normal limits. BNP 363. , 7.5. UA shows moderate leukocytes, large blood. X-ray of chest is negative. CT scan shows urinary bladder. ASSESSMENT AND PLAN: 1. Acute renal failure. 2. Hyperkalemia. 3. Prerenal azotemia. 4. Urinary tract infection. 5. Benign prostatic hypertrophy. 6. Leukocytosis. 7. Acute renal failure. So, the plan is the patient was given Kayexalate by ER physician, he received calcium gluconate D50 with insulin. We will start the patient on Protonix, Rocephin. We gave IV fluids. Monitor his potassium level. Followup electrolyte in a.m. Nephrology consult by Dr. Spence, has been requested. Stephon Vieira MD
[2018-04-13 09:04] LABS: ALB/GLOB RATIO 0.9 (1.1-1.8); ALBUMIN 2.7 g/dL (3.0-4.8); CALCIUM 8.2 mg/dL (8.4-10.5)
--- NOTE | 2018-04-13 09:55 | DS ---
DATE: 04/13/2018 An 88-year-old black male with history of insulin-dependent diabetes mellitus, chronic renal insufficiency, CAD, hypertension. The patient was admitted to the hospital with weakness, was found to be hyperkalemic. BUN and creatinine of 48 and 1.7. On admission, his white count was elevated at 12.4, he had abdominal pain consistent with possible gastroenteritis. His potassium was 6.4. His BUN and creatinine were 47 and 1.7, it is down to 45 and 1.7. Potassium is down to 5.2. Blood sugars are mildly elevated, but unremarkable. The patient had a CT of the abdomen and pelvis, he was found to have kidney lesions, unchanged from previous; history of hematuria; pulmonary nodule; low risk, otherwise unremarkable. Appendix was normal. Bladder was distended. Otherwise, there is no evidence of colitis or ischemic colitis. The patient is improved. Vital signs are better. His abdomen is soft. Chest is clear. On heart examination, there is regular sinus rhythm. The patient will be discharged home in improved condition. FINAL DISCHARGE DIAGNOSES: Hyperkalemia, nonspecific gastroenteritis, pulmonary nodule, hematuria, insulin-dependent diabetes mellitus, chronic renal insufficiency. The patient most likely will be discharged home today if he tolerates his diet and will follow as an outpatient. Anderas Castellanos MD
[2018-04-13] MEDS: Insulin Lispro (humaLOG) MEDIUM Coverage SC SCH ×2 (10:00→12:04)
[2018-04-13] MEDS: cefTRIAXone 1 gm 1 GM/100 ML BAG IVPB SCH (12:11)
[2018-04-13 12:14] VITALS: RESP 19; TEMP 98
[2018-04-13 12:17] VITALS: BP 106/66; PULSE 71
[2018-04-13] MEDS ORDERED: Sodium Chloride 0.9% 1,000 ML IV SCH (17:41)
--- NOTE | 2018-04-13 17:42 | CP.PCM.PN ---
Objective - Vital Signs/Intake and Output Vital Signs (last 24 hours): Temp Pulse Resp BP Pulse Ox 98 F 71 19 106/66 96 04/13/18 12:00 04/13/18 12:12 04/13/18 12:00 04/13/18 12:12 04/13/18 05:45 Intake and Output: 04/13/18 04/13/18 06:59 18:59 Intake Total 1540 Output Total 1750 Balance -210 - Medications Medications: Current Medications Acetaminophen (Tylenol 325mg Tab) 650 mg PO Q6H PRN PRN Reason: Pain Last Admin: 04/12/18 23:13 Dose: 650 mg Aspirin (Ecotrin) 81 mg PO DAILY [facility] Last Admin: 04/13/18 10:00 Dose: 81 mg Benzocaine/Menthol (Cepacol Sore Throat) 1 raymond MT Q2H PRN PRN Reason: Sore Throat Last Admin: 04/12/18 18:30 Dose: 1 raymond Finasteride (Proscar) 5 mg PO DAILY [facility] Last Admin: 04/13/18 10:00 Dose: 5 mg Ceftriaxone Sodium (Rocephin 1 Gram Ivpb) 1 gm in 100 mls @ 100 mls/hr IVPB DAILY [facility] PRN Reason: Protocol Last Admin: 04/13/18 12:11 Dose: 100 mls/hr Sodium Chloride (Sodium Chloride 0.9%) 1,000 mls @ 60 mls/hr IV .[id number] [facility] Insulin Human Lispro (Humalog Med) 0 units SC ACHS [facility] PRN Reason: Protocol Last Admin: 04/13/18 12:04 Dose: 1 units Ondansetron HCl (Zofran Inj) 4 mg IVP Q6H PRN PRN Reason: Nausea/Vomiting Sotalol HCl (Betapace) 80 mg PO BID [facility] Last Admin: 04/13/18 12:12 Dose: 80 mg - Labs Labs: 04/13/18 07:20 04/13/18 07:20 PT 13.0 SECONDS (9.4-12.5) H 04/11/18 15:00 INR 1.14 (0.93-1.08) H 04/11/18 15:00 APTT 26.6 Seconds (25.1-36.5) 04/11/18 15:00 Assessment and Plan (1) Acute kidney injury Status: Acute (2) Hyperkalemia Status: Acute (3) Renal cyst Status: Acute
--- NOTE | 2018-04-14 04:30 | CON ---
DATE: 04/13/2018 GENITOURINARY CONSULTATION CHIEF COMPLAINT: Nausea, vomiting, and diarrhea. HISTORY OF PRESENT ILLNESS: This is an 88-year-old male who was admitted a few days ago after eating some Mongolian food. He thought he ate something bad and began having nausea, vomiting, and diarrhea. He had general malaise with body aches and pains as well as a sore throat. He also reports he had gross hematuria. He was then admitted for workup and evaluation. A consultation was requested regarding the hematuria and finding of renal cysts. PAST MEDICAL HISTORY: Significant for COPD, diabetes, hypertension. PAST SURGICAL HISTORY: Inguinal hernia repair. MEDICATIONS: From home include Proscar, vitamin C, Tessalon, sotalol, Lasix, Aldactone, and losartan. Currently on Betapace, Cepacol lozenges, aspirin, Humalog, Proscar, Rocephin, sodium bicarb, Tylenol, and Zofran. ALLERGIES: NO KNOWN DRUG ALLERGIES. FAMILY HISTORY: Noncontributory for this admission. SOCIAL HISTORY: Patient denies any smoking or EtOH use. REVIEW OF SYSTEMS: Twelve-point review of systems was obtained. GI: Positive for nausea, vomiting, and diarrhea although this has improved. : Positive for gross hematuria, urinary frequency. Musculoskeletal: Positive for joint pains, difficulty ambulating. Other systems are negative. PHYSICAL EXAMINATION: GENERAL: Patient is awake, alert, in no acute distress. He is answering questions. VITAL SIGNS: He is afebrile. Temperature of 98.1, pulse 71, BP 105/66, respirations 18. NECK: Supple. There is no thyromegaly or adenopathy. CHEST: Reveals normal inspiratory effort. CARDIAC: Shows a positive S1, S2. There is no peripheral edema. ABDOMEN: The abdomen is soft, nontender, nondistended. There is no hepatosplenomegaly. There is no costovertebral angle tenderness. GENITOURINARY: Phallus is normal. There is a Mcfarland catheter in place which is draining clear-colored urine. Scrotum is normal. Testes are bilaterally descended, nontender, no masses. Epididymis are normal. EXTREMITIES: Shows no cyanosis, clubbing, or edema. RADIOLOGIC EXAMINATION: Patient had a CT scan of the abdomen and pelvis done from 04/11/2018. His kidney showed mild stranding, which was nonspecific. There are a few probable cysts. Too small to characterize lesions within the kidneys. On the left kidney, there is a 2.7 x 2.7 x 2.7 cm lesion and a 1.7 x 1.7 x 1.7 cm lesion, both were indeterminate. There is no hydronephrosis noted. There is a pulmonary nodule noted as well. LABORATORY EXAM: WBC count was 12.4, came down to 7.4 today. Creatinine was 1.7, which has come down to 1.5 with a GFR of 54. Urinalysis showed 25 to 30 rbc's, one to three wbc's, negative for nitrites. Microbiology: Urine culture was negative. IMPRESSION AND PLAN: This is an 88-year-old male admitted with possible gastroenteritis. Urologically, patient does have microhematuria. He has a history of benign prostatic hypertrophy and has been on finasteride. I would continue the finasteride for now and it is unclear why Mcfarland catheter was placed, but likely patient was complaining of difficulty voiding. When patient's medical condition has improved, Mcfarland catheter should be removed for a voiding trial. As for the hematuria, possibly from catheterized specimen and Mcfarland trauma, he also has what appears to be multiple renal cysts. There does not it appear to be any acute urologic issue other than possible urinary retention and I would plan on a voiding trial in a few days. Patient should follow up in my office in a few weeks. He will need to have re-imaging regarding the renal cysts in a few months. Patient may also have another urologist and he is able to follow up with him as an outpatient as well. If patient's hematuria persists, I would recommend a cystoscopy at some point to rule out any intravesical pathology. Thank you for allowing me to participate in the care of this patient. We will follow him with you. Antonio Ferguson MD
== END 2018-04-13 17:00 | disposition home or self-care (01) | DRG 683 ==
LOC: ED 12:19 → ERH 18:46 → 2RSO 21:42
PROVIDERS: ADMIT Internal Medicine; ATTEND Internal Medicine
DX: N17.9 Acute kidney failure, unspecified (principal); N39.0 Urinary tract infection, site not specified; E87.5 Hyperkalemia; N18.9 Chronic kidney disease, unspecified; E11.22 Type 2 diabetes mellitus with diabetic chronic kidney disease; R91.1 Solitary pulmonary nodule; I12.9 Hypertensive chronic kidney disease with stage 1 through stage 4 chronic kidney disease, or unspecified chronic kidney disease; K52.9 Noninfective gastroenteritis and colitis, unspecified; I25.10 Atherosclerotic heart disease of native coronary artery without angina pectoris; J44.9 Chronic obstructive pulmonary disease, unspecified; N40.0 Benign prostatic hyperplasia without lower urinary tract symptoms; N28.1 Cyst of kidney, acquired; E66.01 Morbid (severe) obesity due to excess calories; R31.9 Hematuria, unspecified; Z79.4 Long term (current) use of insulin; Z87.891 Personal history of nicotine dependence; Z68.29 Body mass index [BMI] 29.0-29.9, adult